=== PATIENT | male | born 1995 | race Caucasian/White ===

== ENCOUNTER 2018-02-07 11:27 | Emergency (ER) | payer OTHER ==
[2018-02-07 12:32] VITALS: BP 123/75
--- NOTE | 2018-02-07 12:51 | UC ---
Skin Complaint HPI - HPI Summary HPI Summary: 22 yo male presents with left big toe pain and swelling for 2 weeks - not improving. Has noticed some drainage at times. Denies injury, fever, chills. - History of Current Complaint Chief Complaint: UCLowerExtremity Time Seen by Provider: 02/07/18 12:50 Stated Complaint: LEFT GREAT TOE COMPLAINT Hx Obtained From: Patient Onset/Duration: Gradual Onset Skin Exposure Onset/Duration: Weeks Ago Timing: Constant Onset Severity: Mild Current Severity: Moderate Pain Intensity: 6 Pain Scale Used: 0-10 Numeric - Allergy/Home Medications Allergies/Adverse Reactions: Allergies Allergy/AdvReac Type Severity Reaction Status Date / Time No Known Allergies Allergy Verified 02/07/18 12:25 Review of Systems Constitutional: Negative Skin: Other - Redness and drainage left great toe Respiratory: Negative Cardiovascular: Negative Neurovascular: Negative Neurological: Negative Psychological: Negative All Other Systems Reviewed And Are Negative: Yes PMH/Surg Hx/FS Hx/Imm Hx - Additional Past Medical History Additional PMH: None Previously Healthy: Yes - Surgical History Surgical History: None - Family History Known Family History: Positive: None - Social History Occupation: Student Lives: Alone Alcohol Use: Weekly Substance Use Type: None Smoking Status (MU): Never Smoked Tobacco Physical Exam - Summary Physical Exam Summary: GENERAL: NAD. WDWN. No pain distress. SKIN: Left great toe: On the lateral aspect of the nailfold there is moderate yellow purulent material mixed with scant blood. The surround area is erythematous and mildly swollen. Moderate TTP. NECK: Supple. Nontender. No lymphadenopathy. CHEST: No accessory muscle use. Breathing comfortably and in no distress. CV: RRR. Without m/r/g. MSK: FROM left great toe NEURO: Alert. CN II-XII grossly intact. PSYCH: Age appropriate behavior. Triage Information Reviewed: Yes Vital Signs: Initial Vital Signs Temp 97.8 F 02/07/18 12:25 Pulse 65 02/07/18 12:25 Resp 16 02/07/18 12:25 BP 123/75 02/07/18 12:25 Pulse Ox 100 02/07/18 12:25 Course/Dx - Course Course Of Treatment: Paronychia. Actively draining - no need to I&D currently. Salt water soaks and keflex. - Diagnoses Provider Diagnoses: Paronychia left great toe Discharge - Sign-Out/Discharge Documenting (check all that apply): Discharge/Admit/Transfer - Discharge Plan Condition: Stable Disposition: HOME Prescriptions: Cephalexin CAP* [Keflex CAP*] 500 mg PO BID #20 cap Lidocaine 4% GEL* [Topicaine 4% GEL*] 1 applic TOPICAL DAILY PRN #1 tube PRN Reason: Pain Patient Education Materials: Paronychia (ED) Referrals: Non Staff,Doctor [Primary Care Provider] - Additional Instructions: If you develop a fever, shortness of breath, chest pain, new or worsening symptoms - please call your PCP or go to the ED. - Billing Disposition and Condition Condition: STABLE Disposition: HOME
== END 2018-02-07 13:11 | disposition home or self-care (01) ==
LOC: UCCORT 11:27
DX: L03.032 Cellulitis of left toe (principal)
CPT/HCPCS: 99202; G0463